=== PATIENT | male | born 1960 ===

== ENCOUNTER 2017-07-08 10:24 | Day surgery (SDC) | payer MEDICARE ==
[2017-07-01 10:22] VITALS: BMI 25.4
[2017-07-08] MEDS ORDERED: Sodium Chloride 0.9% 1,000 ML IV SCH (12:45)
[2017-07-08] MEDS ORDERED: Propofol 10 mg/ml Inj (20 ML) ONE ×3 (12:47→13:31)
[2017-07-08 15:05] VITALS: BP 115/53; PULSE 58; RESP 15; TEMP 98; O2SAT 99
== END 2017-07-08 14:00 | disposition home or self-care (01) ==
LOC: ENDO 10:24
PROVIDERS: ATTEND Internal Medicine Gastroenterology
DX: K29.50 Unspecified chronic gastritis without bleeding (principal); K21.9 Gastro-esophageal reflux disease without esophagitis; K63.89 Other specified diseases of intestine; K64.8 Other hemorrhoids; R10.32 Left lower quadrant pain; R14.0 Abdominal distension (gaseous); R19.4 Change in bowel habit
CPT/HCPCS: 43239; 45378; 88305; 88312; 88342; J2001; J2704; J7040 ×2